=== PATIENT | female | born 1990 | race Caucasian/White ===

== ENCOUNTER 2016-09-20 02:36 | Emergency (ER) | payer OTHER ==
[2016-09-20] MEDS ORDERED: Ondansetron INJ* 2 MG/ML VIAL IV ONE (03:28)
[2016-09-20] MEDS ORDERED: NS 0.9% 1000 ML* 2,000 ML IV ONE (03:28)
[2016-09-20] MEDS ORDERED: Morphine INJ* 4 MG/ML 1 ML SYRINGE IV ONE (03:28)
[2016-09-20 04:06] LABS: Hematocrit 43 % (35-47); Hemoglobin 13.8 g/dl (12.0-16.0); Mean Corpuscular HGB Conc 32 g/dl (31-36); Mean Corpuscular Hemoglobin 27 pg (27-31); Mean Corpuscular Volume 85 fL (80-97); Mean Platelet Volume 10 um3 (7.4-10.4); Red Blood Count 5.03 10^6/ul (4.0-5.4); Red Cell Distribution Width 17 % (10.5-15)
[2016-09-20 04:17] LABS: ALT 41 U/L (7-52); AST 27 U/L (13-39); Albumin 4.4 g/dL (3.2-5.2); Alkaline Phosphatase 89 U/L (34-104); Anion Gap 8 mmol/L (2-11); BUN/Creatinine Ratio 17.9 (8-20); Blood Urea Nitrogen 12 mg/dL (6-24); C Reactive Protein 10.12 mg/L (< 5.00); CO2 Carbon Dioxide 24 mmol/L (22-32); Calcium 9.2 mg/dL (8.6-10.3); Chloride 104 mmol/L (101-111); EGFR African American 135.8 (>60); EGFR Non-African American 105.6 (>60); Globulin 3.4 g/dL (2-4); Glucose 131 mg/dL (70-100); Lipase 19 U/L (11.0-82.0); Potassium 3.8 mmol/L (3.5-5.0); Sodium 136 mmol/L (133-145); Total Protein 7.8 g/dL (6.4-8.9)
[2016-09-20 04:36] VITALS: BP 123/74
[2016-09-20] MEDS ORDERED: oxyCODONE/Acetamin 5/325 MG* TAB PO ONE (04:43)
--- NOTE | 2016-09-20 04:59 | ED ---
Elton Craft Alok, scribed for Chepe Peña MD on 09/20/16 at 0348 . Abdominal Pain/Female - HPI Summary HPI Summary: 26F presents with sudden onset of abd pain at 0130 this evening. Her pain is described as constant and sharp, located at the umbilical and is at the same site where a hernia repair was done years ago. Pt states that her hernia repair site has been bothering her on and off ever since though not with such severity as tonight. Pt states her pain worsens when standing. Pt notes N/V. Pt notes diaphoresis and subjective fever earlier. Pt denies pain radiation to the back. Pt denies chills, diarrhea, or cough. Pt smokes tobacco. Pt is allergic to azithromycin, penicillins, and sulfa antibiotics. Pt denies tenderness over her ovaries. - History of Current Complaint Chief Complaint: EDAbdPain Stated Complaint: ABD PAIN Time Seen by Provider: 09/20/16 03:06 Hx Obtained From: Patient Onset/Duration: Sudden Onset, Lasting Hours, Still Present Timing: Constant Severity Initially: Severe Severity Currently: Moderate Pain Intensity: 10 Pain Scale Used: 0-10 Numeric Location: Umbilical Radiates: No Character: Sharp Aggravating Factor(s): Other: - standing Alleviating Factor(s): Nothing Associated Signs and Symptoms: Positive: Diaphoresis, Fever - subjective, Nausea , Vomiting. Negative: Cough, Back Pain, Diarrhea Allergies/Adverse Reactions: Allergies Allergy/AdvReac Type Severity Reaction Status Date / Time Azithromycin Allergy Unknown Verified 12/16/15 22:58 Reaction Details Penicillins Allergy Unknown Verified 12/16/15 22:58 Reaction Details Sulfa Antibiotics Allergy Hives Verified 12/16/15 22:58 PMH/Surg Hx/FS Hx/Imm Hx GI History: Reports: Hx Gall Bladder Disease, Hx Hiatal Hernia Infectious Disease History: No Infectious Disease History: Denies: Traveled Outside the [place] in Last 30 Days - Family History Known Family History: Positive: Diabetes - Social History Occupation: Employed Full-time Alcohol Use: None Substance Use Type: Reports: None Hx Tobacco Use: Yes Smoking Status (MU): Current Every Day Smoker Type: Cigarettes Review of Systems Positive: Fever - subjective, Skin Diaphoresis. Negative: Chills Negative: Cough Positive: Abdominal Pain, Vomiting, Nausea. Negative: Diarrhea Negative: Other - back pain All Other Systems Reviewed And Are Negative: Yes Physical Exam - Summary Physical Exam Summary: The patient is well-nourished in no mild distress and in mild acute pain. The skin is warm and diaphoretic and skin color reflects adequate perfusion. HEENT: The head is normocephalic and atraumatic. The pupils are equal and reactive. The conjunctivae are clear and without drainage. Nares are patent and without drainage. Mouth reveals moist mucous membranes and the throat is without erythema and exudate. The external ears are intact. The ear canals are patent and without drainage. The tympanic membranes are intact. Neck is supple with full range of motion and non-tender. There are no carotid bruits. There is no neck vein distension. Respiratory: Chest is non-tender. Lungs are clear to auscultation and breath sounds are symmetrical and equal. Cardiovascular: Hear is regular rate and rhythm. There is no murmur or rub auscultated. There is no peripheral edema and pulses are symmetrical and equal. Abdomen: Marked abdominal tenderness. Incision and abdominal hernia tenderness to palpation. No Montenegro's sign. No McBurney's point tenderness. Incision does not appear incarcerated. There are normal bowel sounds heard in all four quadrants and there is no organomegaly palpated. Musculoskeletal: There is no back pain noted. No CVA tenderness. Extremities are non-tender with full range of motion. There is good capillary refill. There is no peripheral edema or calf tenderness elicited. Neurological: Patient is alert and oriented to person, place and time. The patient has symmetrical motor strength in all four extremities. Cranial nerves are grossly intact. Deep tendon reflexes are symmetrical and equal in all four extremities. Psychiatric: The patient has an appropriate affect and does not exhibit any anxiety or depression. Triage Information Reviewed: Yes Vital Signs On Initial Exam: Initial Vitals Temp Pulse Resp BP Pulse Ox 97 F 72 22 147/94 99 09/20/16 02:37 09/20/16 02:37 09/20/16 02:37 09/20/16 02:37 09/20/16 02:37 Vital Signs Reviewed: Yes Diagnostics - Vital Signs Vital Signs Temp Pulse Resp BP Pulse Ox 09/20/16 03:05 96.7 F 96 18 132/97 98 09/20/16 02:37 97 F 72 22 147/94 99 - Laboratory Lab Results: Lab Results 06/01/2709/20/16 09/20/16 Range/Units 03:49 03:49 03:49 WBC 12.0 H (3.5-10.8) 10^3/ul RBC 5.03 (4.0-5.4) 10^6/ul Hgb 13.8 (12.0-16.0) g/dl Hct 43 (35-47) % MCV 85 (80-97) fL MCH 27 (27-31) pg MCHC 32 (31-36) g/dl RDW 17 H (10.5-15) % Plt Count 264 (150-450) 10^3/ul MPV 10 (7.4-10.4) um3 Neut % (Auto) 78.5 (38-83) % Lymph % (Auto) 15.4 L (25-47) % Foard % (Auto) 4.6 (1-9) % Eos % (Auto) 0.9 (0-6) % Baso % (Auto) 0.6 (0-2) % Absolute Neuts (auto) 9.4 H (1.5-7.7) 10^3/ul Absolute Lymphs (auto) 1.9 (1.0-4.8) 10^3/ul Absolute Monos (auto) 0.6 (0-0.8) 10^3/ul Absolute Eos (auto) 0.1 (0-0.6) 10^3/ul Absolute Basos (auto) 0.1 (0-0.2) 10^3/ul Absolute Nucleated RBC 0.01 10^3/ul Nucleated RBC % 0 Sodium 136 (133-145) mmol/L Potassium 3.8 (3.5-5.0) mmol/L Chloride 104 (101-111) mmol/L Carbon Dioxide 24 (22-32) mmol/L Anion Gap 8 (2-11) mmol/L BUN 12 (6-24) mg/dL Creatinine 0.67 (0.51-0.95) mg/dL Est GFR ( Amer) 135.8 (>60) Est GFR (Non-Af Amer) 105.6 (>60) BUN/Creatinine Ratio 17.9 (8-20) Glucose 131 H (70-100) mg/dL Lactic Acid 1.5 (0.5-2.0) mmol/L Calcium 9.2 (8.6-10.3) mg/dL Total Bilirubin 0.40 (0.2-1.0) mg/dL AST 27 (13-39) U/L ALT 41 (7-52) U/L Alkaline Phosphatase 89 (34-104) U/L C-Reactive Protein 10.12 H (< 5.00) mg/L Total Protein 7.8 (6.4-8.9) g/dL Albumin 4.4 (3.2-5.2) g/dL Globulin 3.4 (2-4) g/dL Albumin/Globulin Ratio 1.3 (1-3) Lipase 19 (11.0-82.0) U/L Beta HCG, Quant < 0.60 mIU/mL Result Diagrams: 09/20/16 03:49 09/20/16 03:49 Lab Statement: Any lab studies that have been ordered have been reviewed, and results considered in the medical decision making process. - CT abd/pel CT CT Interpretation: Positive (See Comments) - IMPRESSION: MODERATE TO LARGE FAT- CONTAINING VENTRAL HERNIA. FATTY LIVER. RECOMMEND PELVIC ULTRASOUND TO EXCLUDE TORSION FROM A 5.3 CM RIGHT OVARIAN CYST CT Interpretation Completed By: Radiologist Re-Evaluation - Re-Evaluation First Eval Re-Evaluation Time: 04:43 Change: Improved Comment: Pt denies tenderness over her ovaries. will not do US. will discharge home with PCP FU and pain medication Abdominal Pain Fem Course/Dx - Course Course Of Treatment: Pt presents with umbilical tenderness at hernia repair site. ventral hernia not incarcerted. abd/pel CT done. Pt has large ovarian cyst not painful. Pt denies pain over ovary so will not do US. Pt will FU with her PCP - Diagnoses Differential Diagnosis: Positive: Bowel Obstruction, Diverticulitis, Other - incarcerated ventral hernia Provider Diagnoses: ventral hernia not incarcerated, Ovarian cyst Discharge - Discharge Plan Condition: Stable Disposition: HOME Patient Education Materials: Ventral Hernia (ED), Ovarian Cyst (ED) Forms: *Work Release Referrals: Fely Sandoval DO [Doctor of Osteopathy] - Additional Instructions: Please follow up with Dr. Sandoval The documentation as recorded by the Elton arteaga Alok accurately reflects the service I personally performed and the decisions made by me, Chepe Peña MD.
[2016-09-20 05:27] LABS: Urine Bacteria 1+ (Absent); Urine Bilirubin Negative (Negative); Urine Glucose Negative (Negative); Urine Nitrite Negative (Negative)
--- NOTE | 2016-09-20 08:00 | RAD ---
CLINICAL HISTORY: History of incarcerated ventral hernia COMPARISON: None TECHNIQUE: Multiple contiguous axial CT scans were obtained of the abdomen and pelvis, without intravenous contrast enhancement. Coronal and sagittal multiplanar reformations are submitted for review. Oral contrast was not administered. FINDINGS: The study is limited by the lack of intravenous contrast. This limits evaluation of the solid organs and vasculature. LUNG BASES: The lung bases are clear. LIVER: The liver is diffusely low in attenuation compared to the spleen. There are no focal hepatic parenchymal masses. The liver measures up to 19 cm in long axis. BILE DUCTS: There is no intrahepatic or extrahepatic biliary dilatation. GALLBLADDER: The gallbladder is not visualized. Surgical clips are noted in the gallbladder fossa. PANCREAS: The pancreas is normal, without mass or ductal dilatation. SPLEEN: Normal in size and appearance. UPPER GI TRACT: Evaluation of the gastrointestinal tract is limited by incomplete gastric distention. The upper GI tract is unremarkable. SMALL BOWEL AND MESENTERY: The small bowel is normal in contour, course, and caliber. There is no obstruction or dilatation. COLON: The colon is normal in contour, course, caliber. There is no pericolonic inflammatory change. ADRENALS: Normal bilaterally. KIDNEYS: The kidneys are normal in shape, size, contour, and axis. There is no hydronephrosis or nephrolithiasis. BLADDER: The bladder is smooth in contour. PELVIC ORGANS: There is a 5.3 cm right ovarian cyst measuring simple fluid in attenuation. The liver is otherwise normal. AORTA: The aorta is normal. IVC: Unremarkable LYMPH NODES: There is no lymphadenopathy by size criteria. ABDOMINAL WALL: There is a moderate-sized fat-containing ventral hernia. A hernia repair mesh is noted. BONES AND SOFT TISSUES: Unremarkable OTHER: None IMPRESSION: 1. HEPATOMEGALY WITH FATTY INFILTRATION OF THE LIVER. 2. FAT-CONTAINING VENTRAL HERNIA. 3. 5.3 CM RIGHT OVARIAN CYST
== END 2016-09-20 05:21 | disposition home or self-care (01) ==
LOC: ED 02:36
DX: K43.9 Ventral hernia without obstruction or gangrene (principal); N83.209 Unspecified ovarian cyst, unspecified side; R10.9 Unspecified abdominal pain; K76.0 Fatty (change of) liver, not elsewhere classified; R11.2 Nausea with vomiting, unspecified; F17.210 Nicotine dependence, cigarettes, uncomplicated; R50.9 Fever, unspecified
CPT/HCPCS: 36415; 74176; 80053; 81003; 81015; 83605; 83690; 84702; 85025; 86140; 87086; 99282; A9270-GY; J2270; J2405

== ENCOUNTER 2017-02-11 13:07 | Emergency (ER) | payer MEDICAID, OTHER ==
[2017-02-11 13:43] VITALS: BP 146/76
--- NOTE | 2017-02-11 15:10 | UC ---
Bridget Craft Rebecca, scribed for Geraldo August MD on 02/11/17 at 1458 . General HPI - HPI Summary HPI Summary: Pt is a 26 y/o F who presents to [facility] c/o illness for a month that worsened today. She c/o decreased hearing, pain and drainage from the L ear, sore throat , green nasal drainage, fever, cough, chest congestion and a frontal PEÑA that is currently moderate, ranked 7/10 and characterized as an ache/throbbing. Sx unchanged by Robitussin DM, aggravated and alleviated by nothing. Denies chills and post nasal drip. SHx current smoker. - History of Current Complaint Chief Complaint: UCRespiratory Stated Complaint: COUGH EAR PAIN Time Seen by Provider: 02/11/17 14:52 Hx Obtained From: Patient Hx Last Menstrual Period: 12/2016 Onset/Duration: Lasting Weeks - 4 weeks, Still Present, Worse Since - today Current Severity: Moderate - 7/10 Pain Intensity: 7 Pain Location at: Frontal PEÑA Character: Ache/throbbing Aggravating: Nothing Alleviating: Nothing Associated Signs & Symptoms: Positive: Cough, Fever, Headache - Allergy/Home Medications Allergies/Adverse Reactions: Allergies Allergy/AdvReac Type Severity Reaction Status Date / Time Azithromycin Allergy Unknown Verified 02/11/17 13:43 Reaction Details Penicillins Allergy Unknown Verified 02/11/17 13:43 Reaction Details Sulfa Antibiotics Allergy Hives Verified 02/11/17 13:43 Home Medications: Home Medications Levothyroxine TAB* [Synthroid TAB*] 1 tab PO DAILY 02/11/17 [History Confirmed 02/11/17] PMH/Surg Hx/FS Hx/Imm Hx - Additional Past Medical History Additional PMH: No PMHx asthma Endocrine History: Thyroid Disease - Surgical History Surgical History: Yes Surgery Procedure, Year, and Place: GALLBLADDER, HERNIA REPAIR ANTERIOR ABD, LEFT SIDED NECK LYMPH NODE - Family History Known Family History: Positive: Diabetes - Social History Alcohol Use: None Substance Use Type: None Smoking Status (MU): Current Every Day Smoker Type: Cigarettes Review of Systems Constitutional: Fever Skin: Negative Eyes: Negative ENT: Sore Throat, Ear Ache - L ear pain, decreased hearing and drainage, Nasal Discharge Respiratory: Cough, Other - Chest congestion Cardiovascular: Negative Gastrointestinal: Negative Genitourinary: Negative Motor: Negative Neurovascular: Negative Musculoskeletal: Negative Neurological: Headache Psychological: Negative All Other Systems Reviewed And Are Negative: Yes - Comments Additional Review of Systems Comments: NEGATIVE: Chills and post-nasal drip Physical Exam Triage Information Reviewed: Yes Vital Signs: Initial Vital Signs Temp 98.3 F 02/11/17 13:38 Pulse 86 02/11/17 13:38 Resp 16 02/11/17 13:38 BP 146/76 02/11/17 13:38 Pulse Ox 100 02/11/17 13:38 Vital Signs Reviewed: Yes - Additional Comments General: mildly ill-appearing, no pain distress Skin: warm, color reflects adequate perfusion, dry Head: normal Eyes: EOMI, JAYA ENT: green rhionrrhea, left cerous otitis media, posterior pharynx erythematous , tonsils 1+ bilaterally Neck: supple, anterior cervical lymphadenopathy Respiratory: CTA, breath sounds present Cardiovascular: RRR Abdomen: soft, nontender Bowel: present Musculoskeletal: normal, strength/ROM intact Neurological: normal, sensory/motor intact, A&O x3 Psychological: affect/mood appropriate Course/Dx - Course Course Of Treatment: Allergies noted. Medications reviewed. Elevated BP noted and advised to follow up with PCP. - Differential Dx - Multi-Symptom Provider Diagnoses: SINSUITIS/COUGH Discharge - Discharge Plan Condition: Stable Disposition: HOME Prescriptions: Amoxicillin/Clavulanate TAB* [Augmentin TAB 875*] 875 mg PO BID #20 tab Benzonatate CAP* [Tessalon 100 MG CAP*] 100 mg PO TID PRN #15 cap PRN Reason: Cough Patient Education Materials: Sinusitis (ED) Forms: *Work Release Referrals: Reji Padgett MD [Primary Care Provider] - Additional Instructions: FOLLOW UP WITH YOUR DOCTOR. GET RECHECKED FOR ANY WORSENING OF YOUR CONDITION OR QUESTIONS OR CONCERNS. The documentation as recorded by the Bridget arteaga Rebecca accurately reflects the service I personally performed and the decisions made by me, Geraldo August MD.
== END 2017-02-11 15:05 | disposition home or self-care (01) ==
LOC: UCEAST 13:07
DX: J32.9 Chronic sinusitis, unspecified (principal); Z88.0 Allergy status to penicillin; Z88.2 Allergy status to sulfonamides; F17.210 Nicotine dependence, cigarettes, uncomplicated; E07.9 Disorder of thyroid, unspecified; R05 Cough
CPT/HCPCS: 99212; G0463

== ENCOUNTER 2017-05-04 09:07 | Emergency (ER) | payer MEDICAID, OTHER ==
[2017-05-04 10:53] LABS: ABS Basophils 0 10^3/ul (0-0.2); ABS Eosinophils 0.1 10^3/ul (0-0.6); ABS Lymphocytes 2.7 10^3/ul (1.0-4.8); ABS Monocytes 0.5 10^3/ul (0-0.8); ABS Neutrophils 3.2 10^3/ul (1.5-7.7); ABS Nucleated RBC 0 10^3/ul; Eosinophil % 1.7 % (0-6); Hematocrit 41 % (35-47); Hemoglobin 13.9 g/dl (12.0-16.0); Lymphocyte % 40.8 % (25-47); Mean Corpuscular HGB Conc 34 g/dl (31-36); Mean Corpuscular Hemoglobin 29 pg (27-31); Mean Corpuscular Volume 86 fL (80-97); Mean Platelet Volume 11 um3 (7.4-10.4); Nucleated Red Blood Cells % 0.2; Platelet Count 212 10^3/ul (150-450); Red Blood Count 4.82 10^6/ul (4.0-5.4); Red Cell Distribution Width 16 % (10.5-15); White Blood Count 6.6 10^3/ul (3.5-10.8)
[2017-05-04 11:13] LABS: EGFR Non-African American 102.1 (>60)
[2017-05-04] MEDS ORDERED: NS 0.9% 1000 ML* 1,000 ML IV ONE (12:53)
--- NOTE | 2017-05-04 12:59 | ED ---
Abdominal Pain/Female - HPI Summary HPI Summary: Pt here w/ N/V/D s/p elpidio en y + hernia repair on 03/18/2017 w/ Dr. Gold in [facility]. She's been tolerating PO liquids well and advancing as directed however did not handle pudding well (triggered nausea). 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 Now when she tries to eat same soup, she vomits. Reports vomiting with all other solids as wel but is still tolerating liquids without difficulty including water, juice, broth, milk , yogurt EXCEPT OJ which makes her nauseous. She has not tried her anti-emetics with her liquids as she's not needed them however has tried them with solids and reports neither work (zofran and phenergan). SHe also takes protonix, multivitamin. She had 1 episode of diarrhea last night - otherwise moving bowels well. Reports ab "soreness" since back to work. Smokes 6 cigarettes a day. - History of Current Complaint Hx Obtained From: Patient Hx Last Menstrual Period: 01/2017 Pain Intensity: 5 <Lilliam oRd - Last Filed: 05/04/17 13:55> <Carmen Warren - Last Filed: 05/12/17 08:51> - History of Current Complaint Chief Complaint: EDAbdPain Stated Complaint: N/V X 4 DAYS Time Seen by Provider: 05/04/17 10:14 Allergies/Adverse Reactions: Allergies Allergy/AdvReac Type Severity Reaction Status Date / Time Azithromycin Allergy Unknown Verified 02/16/17 22:14 Reaction Details Penicillins Allergy Unknown Verified 02/16/17 22:14 Reaction Details Sulfa Antibiotics Allergy Hives Verified 02/16/17 22:14 PMH/Surg Hx/FS Hx/Imm Hx Endocrine/Hematology History: Reports: Hx Thyroid Disease Cardiovascular History: Denies: Hx Hypertension Respiratory History: Denies: Hx Asthma GI History: Reports: Hx Gall Bladder Disease, Hx Hiatal Hernia - Surgical History Surgery Procedure, Year, and Place: GALLBLADDER, HERNIA REPAIR ANTERIOR ABD, LEFT SIDED NECK LYMPH NODE Infectious Disease History: No Infectious Disease History: Denies: History Other Infectious Disease, Traveled Outside the [place] in Last 30 Days - Family History Known Family History: Positive: Diabetes - Social History Alcohol Use: None Substance Use Type: Reports: None Hx Tobacco Use: Yes Smoking Status (MU): Current Every Day Smoker Type: Cigarettes <Lilliam Rod - Last Filed: 05/04/17 13:55> Review of Systems All Other Systems Reviewed And Are Negative: Yes <Carmen Warren - Last Filed: 05/12/17 08:51> Physical Exam Vital Signs On Initial Exam: Initial Vitals Temp Pulse Resp BP Pulse Ox 98 F 60 18 113/61 100 05/04/17 09:25 05/04/17 09:25 05/04/17 09:25 05/04/17 09:25 05/04/17 09:25 <Lilliam Rod - Last Filed: 05/04/17 13:55> Vital Signs On Initial Exam: Initial Vitals Temp Pulse Resp BP Pulse Ox 98 F 60 18 113/61 100 05/04/17 09:25 05/04/17 09:25 05/04/17 09:25 05/04/17 09:25 05/04/17 09:25 <Carmen Warren - Last Filed: 05/12/17 08:51> Diagnostics - Vital Signs Vital Signs Temp Pulse Resp BP Pulse Ox 05/04/17 12:00 47 97/49 97 05/04/17 11:34 49 98 05/04/17 11:33 93/47 05/04/17 09:25 98 F 60 18 113/61 100 - Laboratory Lab Results: Lab Results 05/04/17 05/04/17 05/04/17 Range/Units 10:25 10:25 10:25 WBC 6.6 (3.5-10.8) 10^3/ul RBC 4.82 (4.0-5.4) 10^6/ul Hgb 13.9 (12.0-16.0) g/dl Hct 41 (35-47) % MCV 86 (80-97) fL MCH 29 (27-31) pg MCHC 34 (31-36) g/dl RDW 16 H (10.5-15) % Plt Count 212 (150-450) 10^3/ul MPV 11 H (7.4-10.4) um3 Neut % (Auto) 49.5 (38-83) % Lymph % (Auto) 40.8 (25-47) % Hunt % (Auto) 7.7 (1-9) % Eos % (Auto) 1.7 (0-6) % Baso % (Auto) 0.3 (0-2) % Absolute Neuts (auto) 3.2 (1.5-7.7) 10^3/ul Absolute Lymphs (auto) 2.7 (1.0-4.8) 10^3/ul Absolute Monos (auto) 0.5 (0-0.8) 10^3/ul Absolute Eos (auto) 0.1 (0-0.6) 10^3/ul Absolute Basos (auto) 0 (0-0.2) 10^3/ul Absolute Nucleated RBC 0 10^3/ul Nucleated RBC % 0.2 Sodium 141 (133-145) mmol/L Potassium 3.4 L (3.5-5.0) mmol/L Chloride 107 (101-111) mmol/L Carbon Dioxide 26 (22-32) mmol/L Anion Gap 8 (2-11) mmol/L BUN 10 (6-24) mg/dL Creatinine 0.69 (0.51-0.95) mg/dL Est GFR ( Amer) 131.3 (>60) Est GFR (Non-Af Amer) 102.1 (>60) BUN/Creatinine Ratio 14.5 (8-20) Glucose 94 (70-100) mg/dL Lactic Acid 1.4 (0.5-2.0) mmol/L Calcium 9.3 (8.6-10.3) mg/dL Magnesium 1.8 L (1.9-2.7) mg/dL Total Bilirubin 0.60 (0.2-1.0) mg/dL AST 39 (13-39) U/L ALT 46 (7-52) U/L Alkaline Phosphatase 78 (34-104) U/L C-Reactive Protein 5.05 H (< 5.00) mg/L Total Protein 6.9 (6.4-8.9) g/dL Albumin 4.0 (3.2-5.2) g/dL Globulin 2.9 (2-4) g/dL Albumin/Globulin Ratio 1.4 (1-3) Lipase 18 (11.0-82.0) U/L Beta HCG, Quant 0.71 mIU/mL Result Diagrams: 05/04/17 10:25 05/04/17 10:25 Lab Statement: Any lab studies that have been ordered have been reviewed, and results considered in the medical decision making process. <Lilliam Rod - Last Filed: 05/04/17 13:55> - Vital Signs Vital Signs Temp Pulse Resp BP Pulse Ox 05/04/17 14:54 98.3 F 56 20 112/68 100 05/04/17 14:00 61 98 05/04/17 13:00 66 97 05/04/17 12:00 47 97/49 97 05/04/17 11:34 49 98 05/04/17 11:33 93/47 05/04/17 09:25 98 F 60 18 113/61 100 - Laboratory Lab Results: Lab Results 05/04/17 05/04/17 05/04/17 Range/Units 10:25 10:25 10:25 WBC 6.6 (3.5-10.8) 10^3/ul RBC 4.82 (4.0-5.4) 10^6/ul Hgb 13.9 (12.0-16.0) g/dl Hct 41 (35-47) % MCV 86 (80-97) fL MCH 29 (27-31) pg MCHC 34 (31-36) g/dl RDW 16 H (10.5-15) % Plt Count 212 (150-450) 10^3/ul MPV 11 H (7.4-10.4) um3 Neut % (Auto) 49.5 (38-83) % Lymph % (Auto) 40.8 (25-47) % Hunt % (Auto) 7.7 (1-9) % Eos % (Auto) 1.7 (0-6) % Baso % (Auto) 0.3 (0-2) % Absolute Neuts (auto) 3.2 (1.5-7.7) 10^3/ul Absolute Lymphs (auto) 2.7 (1.0-4.8) 10^3/ul Absolute Monos (auto) 0.5 (0-0.8) 10^3/ul Absolute Eos (auto) 0.1 (0-0.6) 10^3/ul Absolute Basos (auto) 0 (0-0.2) 10^3/ul Absolute Nucleated RBC 0 10^3/ul Nucleated RBC % 0.2 Sodium 141 (133-145) mmol/L Potassium 3.4 L (3.5-5.0) mmol/L Chloride 107 (101-111) mmol/L Carbon Dioxide 26 (22-32) mmol/L Anion Gap 8 (2-11) mmol/L BUN 10 (6-24) mg/dL Creatinine 0.69 (0.51-0.95) mg/dL Est GFR ( Amer) 131.3 (>60) Est GFR (Non-Af Amer) 102.1 (>60) BUN/Creatinine Ratio 14.5 (8-20) Glucose 94 (70-100) mg/dL Lactic Acid 1.4 (0.5-2.0) mmol/L Calcium 9.3 (8.6-10.3) mg/dL Magnesium 1.8 L (1.9-2.7) mg/dL Total Bilirubin 0.60 (0.2-1.0) mg/dL AST 39 (13-39) U/L ALT 46 (7-52) U/L Alkaline Phosphatase 78 (34-104) U/L C-Reactive Protein 5.05 H (< 5.00) mg/L Total Protein 6.9 (6.4-8.9) g/dL Albumin 4.0 (3.2-5.2) g/dL Globulin 2.9 (2-4) g/dL Albumin/Globulin Ratio 1.4 (1-3) Lipase 18 (11.0-82.0) U/L Beta HCG, Quant 0.71 mIU/mL Urine Color Urine Appearance Urine pH (5-9) Ur Specific Perry (1.010-1.030) Urine Protein (Negative) Urine Ketones (Negative) Urine Blood (Negative) Urine Nitrate (Negative) Urine Bilirubin (Negative) Urine Urobilinogen (Negative) Ur Leukocyte Esterase (Negative) Urine WBC (Auto) (Absent) Urine RBC (Auto) (Absent) Ur Squamous Epith Cells (Absent) Urine Bacteria (Absent) Urine Glucose (Negative) Urine Ascorbic Acid (Negative) 05/04/17 Range/Units 12:45 WBC (3.5-10.8) 10^3/ul RBC (4.0-5.4) 10^6/ul Hgb (12.0-16.0) g/dl Hct (35-47) % MCV (80-97) fL MCH (27-31) pg MCHC (31-36) g/dl RDW (10.5-15) % Plt Count (150-450) 10^3/ul MPV (7.4-10.4) um3 Neut % (Auto) (38-83) % Lymph % (Auto) (25-47) % Hunt % (Auto) (1-9) % Eos % (Auto) (0-6) % Baso % (Auto) (0-2) % Absolute Neuts (auto) (1.5-7.7) 10^3/ul Absolute Lymphs (auto) (1.0-4.8) 10^3/ul Absolute Monos (auto) (0-0.8) 10^3/ul Absolute Eos (auto) (0-0.6) 10^3/ul Absolute Basos (auto) (0-0.2) 10^3/ul Absolute Nucleated RBC 10^3/ul Nucleated RBC % Sodium (133-145) mmol/L Potassium (3.5-5.0) mmol/L Chloride (101-111) mmol/L Carbon Dioxide (22-32) mmol/L Anion Gap (2-11) mmol/L BUN (6-24) mg/dL Creatinine (0.51-0.95) mg/dL Est GFR ( Amer) (>60) Est GFR (Non-Af Amer) (>60) BUN/Creatinine Ratio (8-20) Glucose (70-100) mg/dL Lactic Acid (0.5-2.0) mmol/L Calcium (8.6-10.3) mg/dL Magnesium (1.9-2.7) mg/dL Total Bilirubin (0.2-1.0) mg/dL AST (13-39) U/L ALT (7-52) U/L Alkaline Phosphatase (34-104) U/L C-Reactive Protein (< 5.00) mg/L Total Protein (6.4-8.9) g/dL Albumin (3.2-5.2) g/dL Globulin (2-4) g/dL Albumin/Globulin Ratio (1-3) Lipase (11.0-82.0) U/L Beta HCG, Quant mIU/mL Urine Color Azul Urine Appearance Cloudy Urine pH 5.0 (5-9) Ur Specific Perry 1.032 H (1.010-1.030) Urine Protein 1+(30 mg/dl) H (Negative) Urine Ketones Trace H (Negative) Urine Blood Negative (Negative) Urine Nitrate Negative (Negative) Urine Bilirubin 1+ H (Negative) Urine Urobilinogen Positive H (Negative) Ur Leukocyte Esterase Trace H (Negative) Urine WBC (Auto) 1+(6-10/hpf) H (Absent) Urine RBC (Auto) Absent (Absent) Ur Squamous Epith Cells Present H (Absent) Urine Bacteria Absent (Absent) Urine Glucose Negative (Negative) Urine Ascorbic Acid * H (Negative) Result Diagrams: 05/04/17 10:25 05/04/17 10:25 Lab Statement: Any lab studies that have been ordered have been reviewed, and results considered in the medical decision making process. <Carmen Warren - Last Filed: 05/12/17 08:51> Abdominal Pain Fem Course/Dx - Course Course Of Treatment: Pt tolerating PO liquids well - ordered zofran in an effort to allow her to keep hydrating by mouth. She admits later in the visit that she is trying to eat too fast at work because her breaks are not adequate for regular hydration and nourishement as she needs. Spoke w/ Dr. Gold - advises reverting back to liquids and soft diet and f/u w/ him this week - she will call to schedule. He is also concerend about her smoking - reports she may develop an ulcer if she continues and she signed a contract NOT to smoke. She states she's quit in the past on chantix - not currently taking but open to trying again through PCP - will contact today. Also admits increased stress with work has her back to smoking. Will take her out of work for a few days to readust to diet, stress and come up with a game plan - needs to take scheduled breaks at work to keep nourishment adequate and avoid vomiting as this can be dangerous overtime. <Lilliam Rod - Last Filed: 05/04/17 13:55> <Carmen Warren - Last Filed: 05/12/17 08:51> - Diagnoses Provider Diagnoses: Vomiting (bilious) following gastrointestinal surgery Discharge <Lilliam Rod - Last Filed: 05/04/17 13:55> <Carmen Warren - Last Filed: 05/12/17 08:51> - Discharge Plan Condition: Stable Disposition: HOME Patient Education Materials: How to Stop Smoking (ED), Elpidio-en-Y Gastric Bypass (GEN), Nutrition after Bariatric Surgery (DC) Forms: *Work Release Referrals: Fely Sandoval DO [Primary Care Provider] - Freddy Gold MD [Family Provider] - Additional Instructions: You appear to be having abdominal discomfort and vomiting from advancing too quickly with diet - eating too fast due to constraints at work, etc. Revert back to liquids and soft foods you know you can tolerate and take anti-nausea medications as needed to tolerate these liquids/soft foods. Follow-up with Dr. Gold later this week or early next to follow-up on your progress. It is also encouraged that you join a support group for other patients with gastric bypass status as they are able to offer support, helpful tips, encouragement, etc that other people may not be able to provide. If you do not know about resources, check in with Dr. Gold for options. It has also been advised that you stop smoking as this can cause an ulcer in your stomach. This may be done through mindful stress reduction techniques and chantix as you have used this well inthe past. Call you PCP today to schedule an appointment this week to restart. You may also benefit from counseling to aid in this process. PCP can refer you as needed. *If in the meantime, you develop abdominal pain, fever, chills, chest pain, shortness of breath, intractable vomiting/diarrhea despite recommendations, return to ED.
[2017-05-04 13:11] LABS: Urine Appearance Cloudy; Urine Blood Negative (Negative); Urine Color Amber; Urine Ketones Trace (Negative); Urine Protein 1+(30 mg/dL) (Negative); Urine Specific Gravity 1.032 (1.010-1.030); Urine Urobilinogen Positive (Negative)
[2017-05-04] MEDS ORDERED: Ondansetron INJ* 2 MG/ML VIAL IV ONE (13:54)
[2017-05-04 14:54] VITALS: BP 112/68
== END 2017-05-04 14:54 | disposition home or self-care (01) ==
LOC: ED 09:07
DX: K91.0 Vomiting following gastrointestinal surgery (principal); F17.210 Nicotine dependence, cigarettes, uncomplicated; Z88.3 Allergy status to other anti-infective agents; Z88.0 Allergy status to penicillin; Z88.2 Allergy status to sulfonamides
CPT/HCPCS: 36415; 80053; 81003; 81015; 83605; 83690; 83735; 84702; 85025; 86140; 87086; 96361; 96374; 99282; J2405

== ENCOUNTER 2017-07-20 18:01 | Emergency (ER) | payer MEDICAID ==
[2017-07-20] MEDS ORDERED: Pantoprazole IV* 40 MG IV ONE (19:40)
[2017-07-20] MEDS ORDERED: NS 0.9% 1000 ML* 1,000 ML IV ONE (19:40)
[2017-07-20] MEDS ORDERED: Metoclopramide IV* 5 MG/ML 2 ML VIAL IV SLOW PU ONE (19:40)
[2017-07-20 20:29] LABS: INR 0.94 (0.77-1.02)
[2017-07-20 20:39] LABS: EGFR Non-African American 121.4 (>60)
[2017-07-20] MEDS ORDERED: Iohexol 300* (CONTRAST) 10 ML SDV IV ONE (20:42)
[2017-07-20 20:49] LABS: ABS Basophils 0 10^3/ul (0-0.2); ABS Eosinophils 0.2 10^3/ul (0-0.6); ABS Lymphocytes 3.6 10^3/ul (1.0-4.8); ABS Monocytes 0.4 10^3/ul (0-0.8); ABS Nucleated RBC 0 10^3/ul; Eosinophil % 1.9 % (0-6); Hematocrit 37 % (35-47); Hemoglobin 12.6 g/dl (12.0-16.0); Lymphocyte % 43.9 % (25-47); Mean Corpuscular HGB Conc 34 g/dl (31-36); Mean Corpuscular Hemoglobin 31 pg (27-31); Mean Corpuscular Volume 91 fL (80-97); Mean Platelet Volume 9.6 um3 (7.4-10.4); Nucleated Red Blood Cells % 0.1; Platelet Count 224 10^3/ul (150-450); Red Blood Count 4.06 10^6/ul (4.0-5.4); Red Cell Distribution Width 24 % (10.5-15); White Blood Count 8.1 10^3/ul (3.5-10.8)
--- NOTE | 2017-07-20 21:43 | RAD ---
INDICATION: Upper abdominal pain. Vomiting. Post gastric bypass, cholecystectomy, hernia repair. COMPARISON: September 20, 2016 TECHNIQUE: Multidetector CT images were obtained from the lung bases to the ischial tuberosities with 132 mL Omnipaque 300 IV and oral contrast. Multiplanar reformation. REPORT: Mild bibasilar subsegmental atelectasis. Top normal size of the liver with diffuse decreased density consistent with fatty infiltration. No focal hepatic lesions or biliary dilatation. Post cholecystectomy. Unremarkable pancreas and spleen. Postsurgical change of gastric bypass without suspicious finding. Supraumbilical midline to LEFT para midline mesenteric fat-containing 1.6 cm AP by 4.6 cm transverse by 3.3 cm cephalocaudal hernia exiting through a 1.0 x 1.7 cm fascia defect. Significant associated inflammatory change within the hernia and surrounding the hernia within the subcutaneous tissue plane. The hernia is significantly decreased in size compared with the September 20, 2016 exam. Postsurgical change of previous ventral hernia repair cephalad adjacent to the current hernia. Negative for additional hernias. Normal adrenal glands. Unremarkable kidneys with symmetric nephrograms and pyelograms. Unremarkable nondilated ureters and largely decompressed urinary bladder as well as the anteverted uterus and adnexal regions. Negative for lymphadenopathy. Normal diameter abdominal aorta and iliac arteries. Physiologic distention of the IVC. Bilateral subchondral sclerosis at the iliac and sacral margins of the sacroiliac joints. No definitive osseous erosions, osteophytosis, joint effusions, or joint space widening or narrowing evident. Negative for suspicious focal osseous lesions. IMPRESSION: 1. Inflammatory change at a mesenteric fat-containing ventral hernia located inferior to a previous ventral hernia repair. Given the inflammatory change the herniated fat may be incarcerated and ischemic. Correlate with clinical assessment. 2. Negative for ascites or free air. 3. Fatty infiltration of the liver. 4. Sclerotic changes at the bilateral sacroiliac joints which may represent sequela of chronic sacroiliitis or atypical osteitis condensans ilii with involvement of both the sacral and iliac margins of the sacroiliac joints.
[2017-07-20 22:13] LABS: Urine Appearance Cloudy; Urine Blood Negative (Negative); Urine Color Yellow; Urine Ketones Trace (Negative); Urine Protein Negative (Negative); Urine Specific Gravity 1.042 (1.010-1.030); Urine Urobilinogen Positive (Negative)
--- NOTE | 2017-07-20 22:21 | ED ---
Suman Craft Stephanie, scribed for Quita Valverde MD on 07/20/17 at 1918 . Abdominal Pain/Female - HPI Summary HPI Summary: The pt is a 27 y/o F presenting to the ED with c/o epigastric pain that began at 12:00 today. Symptoms include slight hematemesis, lightheadedness and dizziness. The pt denies diarrhea. Her abd pain is described as burning. The pt has hx of gastric bypass and hernia. She states she vomited 4 times today and the most recent vomiting episode occurred at 17:00. The pt reports BM this morning. - History of Current Complaint Chief Complaint: EDAbdPain Stated Complaint: VOMITING BLOOD Time Seen by Provider: 07/20/17 19:09 Hx Obtained From: Patient Hx Last Menstrual Period: 01/2017 ?: No Onset/Duration: Sudden Onset, Lasting Hours, Still Present Timing: Intermittent Episode Lasting Severity Currently: Moderate Pain Intensity: 6 Pain Scale Used: 0-10 Numeric Location: Epigastric Radiates: No Character: Burning Aggravating Factor(s): Nothing Alleviating Factor(s): Nothing Associated Signs and Symptoms: Positive: Dizzy, Nausea, Vomiting - slight hematemesis, Other: - lightheadedness. Negative: Diarrhea Allergies/Adverse Reactions: Allergies Allergy/AdvReac Type Severity Reaction Status Date / Time azithromycin Allergy Anaphylatic Verified 07/20/17 18:18 Shock Penicillins Allergy Unknown Verified 07/20/17 18:18 Reaction Details Sulfa (Sulfonamide Allergy Hives Verified 07/20/17 18:18 Antibiotics) PMH/Surg Hx/FS Hx/Imm Hx Endocrine/Hematology History: Reports: Hx Thyroid Disease Cardiovascular History: Denies: Hx Hypertension Respiratory History: Denies: Hx Asthma GI History: Reports: Hx Gall Bladder Disease, Hx Hiatal Hernia EENT History: Denies: Hx Deafness - Surgical History Surgery Procedure, Year, and Place: GALLBLADDER, HERNIA REPAIR ANTERIOR ABD, LEFT SIDED NECK LYMPH NODE Infectious Disease History: No Infectious Disease History: Denies: History Other Infectious Disease, Traveled Outside the [place] in Last 30 Days - Family History Known Family History: Positive: Diabetes - Social History Occupation: Unemployed Lives: With Family Alcohol Use: None Hx Substance Use: No Substance Use Type: Reports: None Hx Tobacco Use: Yes Smoking Status (MU): Current Every Day Smoker Type: Cigarettes Have You Smoked in the Last Year: Yes Review of Systems Negative: Fever Positive: Abdominal Pain, Vomiting - hematemesis, Nausea. Negative: Diarrhea Neurological: Other - lightheadedness, dizziness Negative: Slurred Speech All Other Systems Reviewed And Are Negative: Yes Physical Exam - Summary Physical Exam Summary: VITAL SIGNS: Reviewed. GENERAL: Patient is a well-developed and nourished FEMALE who is lying comfortable in the stretcher. Patient is not in any acute respiratory distress. HEAD AND FACE: No signs of trauma. No ecchymosis, hematomas or skull depressions. No sinus tenderness. EYES: PERRLA, EOMI x 2, No injected conjunctiva, no nystagmus. EARS: Hearing grossly intact. Ear canals and tympanic membranes are within normal limits. MOUTH: Oropharynx within normal limits. NECK: Supple, trachea is midline, no adenopathy, no JVD, no carotid bruit, no c- spine tenderness, neck with full ROM. CHEST: Symmetric, no tenderness at palpation LUNGS: Clear to auscultation bilaterally. No wheezing or crackles. CVS: Regular rate and rhythm, S1 and S2 present, no murmurs or gallops appreciated. ABDOMEN: Soft, epigastric tenderness. No signs of distention. No rebound no guarding, and no masses palpated. Bowel sounds are normal. EXTREMITIES: FROM in all major joints, no edema, no cyanosis or clubbing. NEURO: Alert and oriented x 3. No acute neurological deficits. Speech is normal and follows commands. SKIN: Dry and warm Triage Information Reviewed: Yes Vital Signs On Initial Exam: Initial Vitals Temp Pulse Resp BP Pulse Ox 97.4 F 51 16 127/63 98 07/20/17 18:19 07/20/17 18:19 07/20/17 18:19 07/20/17 18:19 07/20/17 18:19 Vital Signs Reviewed: Yes Diagnostics - Vital Signs Vital Signs Temp Pulse Resp BP Pulse Ox 07/20/17 18:19 97.4 F 51 16 127/63 98 - Laboratory Result Diagrams: 07/20/17 20:13 07/20/17 20:13 Lab Statement: Any lab studies that have been ordered have been reviewed, and results considered in the medical decision making process. - CT Abdomen CT Interpretation: Positive (See Comments) CT Interpretation Completed By: Radiologist - 1. Inflammatory change at a mesenteric fat-containing ventral hernia located inferior to a previous ventral hernia repair. Given the inflammatory change the herniated fat may be incarcerated and ischemic. Correlate with clinical assessment. 2. Negative for ascites or free air. 3. Fatty infiltration of the liver. 4. Sclerotic changes at the bilateral sacroiliac joints which may represent sequela of chronic sacroiliitis or atypical osteitis condensans ilii with involvement of both the sacral and iliac margins of the sacroiliac joints. ED physician has reviewed this report. Re-Evaluation - Re-Evaluation First Eval Re-Evaluation Time: 22:17 Change: Improved - The pt states she feels better. Abdominal Pain Fem Course/Dx - Course Course Of Treatment: At 22:16, pt states she feels better. She arrived at ED with c/o epigastric pain. ED physician reviewed the CT report with the pt. Symptoms do not correlate with CT report as well as blood work. Pt symptoms likely not as result of hernia. Her symptoms are likely the result of gastritis. She will be d/c home with Reglan and protonics. She is advised to follow up with her PCP. - Diagnoses Provider Diagnoses: Gastritis Discharge - Sign-Out/Discharge Documenting (check all that apply): Discharge - Discharge Plan Condition: Stable Disposition: HOME Prescriptions: Metoclopramide TAB* [Reglan TAB*] 10 mg PO Q6H PRN #20 tab PRN Reason: Nausea/Vomiting Pantoprazole TAB (NF) [Protonix TAB (NF)] 40 mg PO DAILY #30 tab Patient Education Materials: Gastritis (ED) Referrals: Fely Sandoval DO [Primary Care Provider] - 2 Days Additional Instructions: RETURN TO EMERGENCY DEPARTMENT FOR ANY NEW OR WORSENING SYMPTOMS. The documentation as recorded by the Suman arteaga Stephanie accurately reflects the service I personally performed and the decisions made by , Quita Valverde MD.
[2017-07-20 22:54] VITALS: BP 115/66
--- NOTE | 2017-07-24 07:07 | PN ---
Progress Note - Progress Note Date of Service: 07/24/17 Note: Patient urine culture grew Escherichia coli greater than 100,000 and normal fora greater than 100,000. sent prescription for Cipro 500 mg twice a day for 5 days. Attempts to call patient unable to leave . we'll send letter.
== END 2017-07-20 22:57 | disposition home or self-care (01) ==
LOC: ED 18:01
DX: K29.70 Gastritis, unspecified, without bleeding (principal); R11.2 Nausea with vomiting, unspecified; R42 Dizziness and giddiness; K76.0 Fatty (change of) liver, not elsewhere classified; Z88.0 Allergy status to penicillin; F17.210 Nicotine dependence, cigarettes, uncomplicated
CPT/HCPCS: 36415; 74177; 80053; 81003; 81015; 82150; 83690; 83735; 84702; 85025; 85060; 85610; 85730; 86140; 87077; 87086; 87186; 99284; J2765; Q9967

== ENCOUNTER 2017-12-17 04:02 | Emergency (ER) | payer SELFPAY ==
--- NOTE | 2017-12-17 04:45 | ED ---
Complex/Multi-Sys Presentation - HPI Summary HPI Summary: This is Willie arteaga, documenting for attending Quita Valverde MD. Pt is a 27 y/o F presents to ED s/p receiving x2 positive tests. Patient is asymptomatic at this time. 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 She states having a blood type that makes it difficult to carry a child. She says that she has been 3 times previously; all ending in miscarriage. LNMP: November 19. - History Of Current Complaint Chief Complaint: EDOBProblems Time Seen by Provider: 12/17/17 04:09 Hx Obtained From: Patient Onset/Duration: Sudden Onset, Lasting Hours Associated Signs And Symptoms: Negative: Decreased Responsiveness, Confusion, Agitation, Dizziness, Weakness, Syncope, Headache, SOB, Cough, Wheezing, Hemoptysis, Chest Pain, Palpitations, Edema, Nausea, Vomiting, Diarrhea, Abdominal Pain, Back Pain, Dysuria, Hematemesis, Melena, Decreased Oral Intake, Fever, Diaphoresis, Immunocompromised, Anticoagulation Therapy, Recent Medication Changes, Indwelling Pelt Inspector, Prior MRSA, Prior VRE, Recent Trauma, Remote Trauma - Allergies/Home Medications Allergies/Adverse Reactions: Allergies Allergy/AdvReac Type Severity Reaction Status Date / Time azithromycin Allergy Anaphylatic Verified 07/20/17 18:18 Shock Penicillins Allergy Unknown Verified 07/20/17 18:18 Reaction Details Sulfa (Sulfonamide Allergy Hives Verified 07/20/17 18:18 Antibiotics) PMH/Surg Hx/FS Hx/Imm Hx Endocrine/Hematology History: Reports: Hx Thyroid Disease Denies: Hx Diabetes Cardiovascular History: Denies: Hx Hypertension Respiratory History: Denies: Hx Asthma GI History: Reports: Hx Gall Bladder Disease, Hx Hiatal Hernia History: Denies: Hx Renal Disease Sensory History: Denies: Hx Deafness - Surgical History Surgery Procedure, Year, and Place: GALLBLADDER, HERNIA REPAIR ANTERIOR ABD, LEFT SIDED NECK LYMPH NODE Infectious Disease History: No Infectious Disease History: Denies: History Other Infectious Disease, Traveled Outside the [place] in Last 30 Days - Family History Known Family History: Positive: Diabetes - Social History Occupation: Employed Full-time Lives: With Family Alcohol Use: Weekly Hx Substance Use: No Substance Use Type: Reports: None Hx Tobacco Use: Yes Smoking Status (MU): Current Every Day Smoker Type: Cigarettes Have You Smoked in the Last Year: Yes Review of Systems Negative: Fever, Chills, Fatigue, Skin Diaphoresis Negative: Photophobia, Blurred Vision, Diplopia, Drainage, Erythema Negative: Epistaxis, Dental Pain, Sore Throat, Ear Ache, Nasal Discharge Negative: Palpitations, Chest Pain Negative: Shortness Of Breath, Cough Negative: Abdominal Pain, Vomiting, Diarrhea, Nausea Negative: burning, dysuria, discharge, frequency, flank pain, hematuria, incontinence, pain, urgency Negative: Arthralgia, Myalgia, Decreased ROM, Edema Negative: Rash, Bruising Negative: Headache, Weakness, Paresthesia, Numbness, Syncope, Slurred Speech Negative: Anxious, Depressed All Other Systems Reviewed And Are Negative: Yes Physical Exam - Summary Physical Exam Summary: VITAL SIGNS: Reviewed. GENERAL: Patient is a well-developed and nourished female who is lying comfortable in the stretcher. Patient is not in any acute respiratory distress. HEAD AND FACE: No signs of trauma. No ecchymosis, hematomas or skull depressions. No sinus tenderness. EYES: PERRLA, EOMI x 2, No injected conjunctiva, no nystagmus. EARS: Hearing grossly intact. Ear canals and tympanic membranes are within normal limits. MOUTH: Oropharynx within normal limits. NECK: Supple, trachea is midline, no adenopathy, no JVD, no carotid bruit, no c- spine tenderness, neck with full ROM. CHEST: Symmetric, no tenderness at palpation LUNGS: Clear to auscultation bilaterally. No wheezing or crackles. CVS: Regular rate and rhythm, S1 and S2 present, no murmurs or gallops appreciated. ABDOMEN: Soft, non-tender. No signs of distention. No rebound no guarding, and no masses palpated. Bowel sounds are normal. EXTREMITIES: FROM in all major joints, no edema, no cyanosis or clubbing. NEURO: Alert and oriented x 3. No acute neurological deficits. Speech is normal and follows commands. SKIN: Dry and warm Triage Information Reviewed: Yes Vital Signs On Initial Exam: Initial Vitals Temp Pulse Resp BP Pulse Ox 98 F 61 16 120/62 98 12/17/17 04:04 12/17/17 04:04 12/17/17 04:04 12/17/17 04:04 12/17/17 04:04 Vital Signs Reviewed: Yes Diagnostics - Vital Signs Vital Signs Temp Pulse Resp BP Pulse Ox 12/17/17 04:04 98 F 61 16 120/62 98 - Laboratory Lab Statement: Any lab studies that have been ordered have been reviewed, and results considered in the medical decision making process. Complex Multi-Symp Course/Dx Course Of Treatment: Patient comes into ED s/p receiving x2 positive tests and would like to confirm. Provider has ordered the appropriate bloodwork to check for . Patient will be D/C home - Diagnoses Provider Diagnoses: Discharge - Sign-Out/Discharge Documenting (check all that apply): Patient Departure - Discharge Plan Condition: Stable Disposition: HOME Patient Education Materials: (ED) Referrals: Fely Sandoval DO [Primary Care Provider] - 2 Days Additional Instructions: RETURN TO THE EMERGENCY DEPARTMENT FOR CHANGING OR WORSENING SYMPTOMS. FOLLOW UP WITH PCP IN 1-2 DAYS. - Attestation Statements Document Initiated by Scribe: Yes Documenting Scribe: Willie Joshua Provider For Whom Scribe is Documenting (Include Credential): Quita Valverde MD Scribe Attestation: Willie Craft, scribed for Quita Valverde MD on 12/17/17 at 0545.
[2017-12-17 05:55] VITALS: BP 139/40
== END 2017-12-17 05:53 | disposition home or self-care (01) ==
LOC: ED 04:02
DX: Z32.01 Encounter for pregnancy test, result positive (principal); Z88.1 Allergy status to other antibiotic agents; Z88.0 Allergy status to penicillin; Z88.2 Allergy status to sulfonamides; F17.210 Nicotine dependence, cigarettes, uncomplicated
CPT/HCPCS: 36415; 84702; 86703; 99282

== ENCOUNTER 2017-12-23 10:36 | Emergency (ER) | payer SELFPAY ==
[2017-12-23 10:45] VITALS: BP 109/59
--- NOTE | 2017-12-23 11:17 | UC ---
Complaint Female HPI - HPI Summary HPI Summary: SEEN AT [facility] TODAY () AND TOLD TO COME HERE FOR EVAL DUE TO BACTERIA IN URINE DIP. PT STATES HER URINE HAS BEEN MALODOROUS FOR SOME WEEKS. DENIES ANY PAIN OR URINARY FREQUENCY. NO FEVER OR NAUSEA. - History Of Current Complaint Chief Complaint: UCGU Stated Complaint: URINARY COMPLAINT Time Seen by Provider: 12/23/17 10:49 Hx Obtained From: Patient Hx Last Menstrual Period: 11/19/17 Onset/Duration: Gradual Onset, Lasting Days, Still Present Severity Initially: Moderate Severity Currently: Moderate Pain Intensity: 6 Pain Scale Used: 0-10 Numeric Aggravating Factor(s): Nothing Alleviating Factor(s): Nothing Associated Signs And Symptoms: Positive: Back Pain. Negative: Fever, Nausea - Allergies/Home Medications Allergies/Adverse Reactions: Allergies Allergy/AdvReac Type Severity Reaction Status Date / Time azithromycin Allergy Anaphylatic Verified 07/20/17 18:18 Shock Penicillins Allergy Unknown Verified 07/20/17 18:18 Reaction Details Sulfa (Sulfonamide Allergy Hives Verified 07/20/17 18:18 Antibiotics) Home Medications: Home Medications Vit 10/Iron/Folic/Dha [Vitafol-Ob+Dha Combo Pack] 1 tab PO DAILY [History Confirmed 12/23/17] PMH/Surg Hx/FS Hx/Imm Hx Endocrine History: Thyroid Disease - Surgical History Surgical History: Yes Surgery Procedure, Year, and Place: GALLBLADDER, HERNIA REPAIR ANTERIOR ABD, LEFT SIDED NECK LYMPH NODE bariatric surg 03/13 17 - Family History Known Family History: Positive: Diabetes - Social History Alcohol Use: None Substance Use Type: None Smoking Status (MU): Heavy Every Day Tobacco Smoker Type: Cigarettes Have You Smoked in the Last Year: Yes Review of Systems Constitutional: Negative Respiratory: Negative Cardiovascular: Negative Gastrointestinal: Negative Genitourinary: Other - MALODOROUS URINE Musculoskeletal: Other: - LOW BACK PAIN All Other Systems Reviewed And Are Negative: Yes Physical Exam Triage Information Reviewed: Yes Appearance: Well-Appearing, No Pain Distress, Well-Nourished Vital Signs: Initial Vital Signs Temp 97.9 F 12/23/17 10:39 Pulse 69 12/23/17 10:39 Resp 16 12/23/17 10:39 BP 109/59 12/23/17 10:39 Pulse Ox 99 12/23/17 10:39 Laboratory Tests 12/23/17 10:56 POC Urine Color Azul POC Urine Clarity Clear POC Urine pH 6.5 POC Ur Specif [place] 1.025 POC Urine Protein Trace A POC Ur Glucose (UA) Negative POC Urine Ketones 1+ A POC Urine Blood Negative POC Urine Nitrite Negative POC Urine Bilirubin 1+ A POC Urine Urobilinogen 4.0 A POC U Leukocyte Esteras 1+ A Vital Signs Reviewed: Yes Eyes: Positive: Conjunctiva Clear ENT: Positive: Hearing grossly normal Neck: Positive: Supple Respiratory: Positive: No respiratory distress, No accessory muscle use Cardiovascular: Positive: Pulses Normal Abdomen Description: Positive: Soft. Negative: CVA Tenderness (R), CVA Tenderness (L), Distended, Guarding Musculoskeletal: Positive: No Edema Neurological: Positive: Alert Psychological: Positive: Age Appropriate Behavior Skin: Negative: rashes Complaint Female Dx - Course Course Of Treatment: PT STATES SHE CAN NOT TAKE CAPSULES DUE TO H/O GASTIC BYPASS. WILL GIVE LIQUID CEPHALEXIN. F/U OB. - Differential Dx/Diagnosis Provider Diagnoses: UTI IN Discharge - Sign-Out/Discharge Documenting (check all that apply): Patient Departure All imaging exams completed and their final reports reviewed: No Studies - Discharge Plan Condition: Stable Disposition: HOME Prescriptions: Cephalexin SUSP* [Keflex SUSP 250 MG/5 ML*] 10 ml PO BID #100 ml Patient Education Materials: Urinary Tract Infection in (ED) Referrals: [facility] [Provider Group] - 1 Week Fely Sandoval DO [Primary Care Provider] - If Needed Additional Instructions: STAY WELL HYDRATED. FOLLOW-UP WITH [facility] WITHIN 1-2 WEEKS. - Billing Disposition and Condition Condition: STABLE Disposition: Home
== END 2017-12-23 11:26 | disposition home or self-care (01) ==
LOC: UCEAST 10:36
DX: O23.40 Unspecified infection of urinary tract in pregnancy, unspecified trimester (principal); Z3A.00 Weeks of gestation of pregnancy not specified; F17.210 Nicotine dependence, cigarettes, uncomplicated; Z88.0 Allergy status to penicillin; Z88.3 Allergy status to other anti-infective agents; Z88.2 Allergy status to sulfonamides
CPT/HCPCS: 81003; 87077; 87086; 87186; 99212; G0463

== ENCOUNTER 2017-12-23 17:21 | Emergency (ER) | payer SELFPAY ==
[2017-12-23 20:14] LABS: Hematocrit 37 % (35-47); Hemoglobin 12.5 g/dl (12.0-16.0); Mean Corpuscular HGB Conc 34 g/dl (31-36); Mean Corpuscular Hemoglobin 38 pg (27-31); Mean Corpuscular Volume 112 fL (80-97); Mean Platelet Volume 10.4 um3 (7.4-10.4); Platelet Count 211 10^3/ul (150-450); Red Cell Distribution Width 17 % (10.5-15); White Blood Count 9.5 10^3/ul (3.5-10.8)
[2017-12-23 20:42] LABS: ABS Basophils 0 10^3/ul (0-0.2); ABS Eosinophils 0.1 10^3/ul (0-0.6); ABS Lymphocytes 3.2 10^3/ul (1.0-4.8); ABS Monocytes 0.5 10^3/ul (0-0.8); ABS Neutrophils 5.6 10^3/ul (1.5-7.7); ABS Nucleated RBC 0 10^3/ul; Eosinophil % 1.5 % (0-6); Nucleated Red Blood Cells % 0.1
--- NOTE | 2017-12-23 21:58 | RAD ---
EXAM: US , Transvaginal CLINICAL HISTORY: 27 years old, female; Signs and symptoms; Lmp or gestational age (in weeks): 11/19/17; Other: Bleeding; ; Patient HX: Very early with bleeding TECHNIQUE: Real-time transvaginal obstetrical ultrasound of the maternal pelvis and a first trimester with image documentation. Transvaginal imaging was used for better evaluation of the fetus and adnexa. COMPARISON: A/P W CT ABD/PEL W 07/20/2017 9:08 PM FINDINGS: Gestation: A small irregularly-shaped fluid collection is present in the endometrial canal. It is not certain whether this represents a gestational sac or a focus of hemorrhage. No pole or yolk sac identified. Placenta/amniotic fluid: Cannot be adequately evaluated due to the early gestational age. Uterus/cervix: 4 mm nabothian cyst in the cervix. No myometrial mass. Ovaries: The left ovary measures 3.7 x 1.8 x 2.1 cm and contains a 1.2 x 1.9 x 1.0 cm cyst. The right ovary measures 2.6 x 1.5 x 1.8 cm. No mass. Free fluid: No free fluid. IMPRESSION: Small irregularly-shaped fluid collection in endometrial canal could represent a an irregularly-shaped gestational sac or a focus of hemorrhage. No pole or yolk sac identified. While this may represent very early IUP, demise or failed cannot be excluded. Recommend correlation with serial beta hCGs and followup ultrasound as indicated
--- NOTE | 2017-12-23 22:11 | ED ---
- HPI Summary HPI Summary: Patient with history of 5-6 weeks complains of mild vaginal spotting and mild low bilateral abdominal cramping 2 hours. Cramping is intermittent, worse at 6/10. Patient denies fever, cough, sore throat, CP, SOB, N/V/D, vaginal discharge or pain, change in BM. Medical history is none. Abdominal/ surgical history is Cria-en-Y on March 14, hernia repair. - History of Current Complaint Chief Complaint: EDOBProblems Stated Complaint: 4-6 WKS PREG/BLEEDING Time Seen by Provider: 12/23/17 21:08 Hx Obtained From: Patient Chief Complaint: Vaginal Bleeding Onset/Duration: Started Hours Ago Timing: Intermittent, Lasting Minutes Severity: Moderate Current Severity: Moderate Pain Intensity: 6 Location of Pain: Left Side, Right Side, Suprapubic Character: Cramping Associated Signs and Symptoms: Positive: Vaginal Bleeding or Discharge - Assessment Hx Now: Yes Hx Hysterectomy: No - Allergies/Home Medications Allergies/Adverse Reactions: Allergies Allergy/AdvReac Type Severity Reaction Status Date / Time azithromycin Allergy Anaphylatic Verified 12/23/17 17:26 Shock Sulfa (Sulfonamide Allergy Hives Verified 12/23/17 17:26 Antibiotics) PMH/Surg Hx/FS Hx/Imm Hx Endocrine/Hematology History: Reports: Hx Thyroid Disease Denies: Hx Anticoagulant Therapy, Hx Diabetes Cardiovascular History: Denies: Hx Hypertension Respiratory History: Denies: Hx Asthma GI History: Reports: Hx Gall Bladder Disease, Hx Hiatal Hernia History: Denies: Hx Dialysis, Hx Renal Disease Sensory History: Denies: Hx Deafness Neurological History: Denies: Hx CVA - Surgical History Surgery Procedure, Year, and Place: GALLBLADDER, HERNIA REPAIR ANTERIOR ABD, LEFT SIDED NECK LYMPH NODE bariatric surg 03/13 17 - Immunization History Immunizations Up to Date: Yes Infectious Disease History: No Infectious Disease History: Denies: History Other Infectious Disease, Traveled Outside the [place] in Last 30 Days - Family History Known Family History: Positive: Diabetes - Social History Alcohol Use: None Hx Substance Use: No Substance Use Type: Reports: None Hx Tobacco Use: Yes Smoking Status (MU): Heavy Every Day Tobacco Smoker Type: Cigarettes Have You Smoked in the Last Year: Yes Review of Systems Constitutional: Negative Eyes: Negative ENT: Negative Cardiovascular: Negative Respiratory: Negative Positive: Abdominal Pain Genitourinary: Negative Musculoskeletal: Negative Skin: Negative Neurological: Negative Psychological: Normal All Other Systems Reviewed And Are Negative: Yes Physical Exam - Summary Physical Exam Summary: Mild tenderness to palpation in lower abdomen bilaterally and suprapubically. Abdominal exam otherwise unremarkable. - Physical Exam Triage Information Reviewed: Yes Vital Signs Reviewed: Yes Appearance: Positive: Well-Appearing Skin: Positive: Warm Head/Face: Positive: Normal Head/Face Inspection Eyes: Positive: Normal Neck: Positive: Supple Respiratory/Lung Sounds: Positive: Clear to Auscultation Cardiovascular: Positive: Normal Abdomen Description: Positive: Other: Musculoskeletal: Positive: Normal Neurological: Positive: Normal Psychiatric: Positive: Normal AVPU Assessment: Alert - [place] Coma Scale Eye: 4 - Spontaneous Motor: 6 - Obeys Commands Verbal: 5 - Oriented Coma Scale Total: 15 Diagnostics - Vital Signs Vital Signs Temp Pulse Resp BP Pulse Ox 12/23/17 19:58 98.0 F 51 16 127/98 100 12/23/17 17:24 97.9 F 65 12 122/54 98 - Laboratory Lab Results: Lab Results 12/23/17 12/23/17 12/23/17 Range/Units 19:23 19:23 19:23 WBC 9.5 (3.5-10.8) 10^3/ul RBC 3.30 L (4.00-5.40) 10^6/ul Hgb 12.5 (12.0-16.0) g/dl Hct 37 (35-47) % MCV 112 H (80-97) fL MCH 38 H (27-31) pg MCHC 34 (31-36) g/dl RDW 17 H (10.5-15) % Plt Count 211 (150-450) 10^3/ul MPV 10.4 (7.4-10.4) um3 Neut % (Auto) 58.8 (38-83) % Lymph % (Auto) 34.0 (25-47) % [place] % (Auto) 5.6 (0-7) % Eos % (Auto) 1.5 (0-6) % Baso % (Auto) 0.1 (0-2) % Absolute Neuts (auto) 5.6 (1.5-7.7) 10^3/ul Absolute Lymphs (auto) 3.2 (1.0-4.8) 10^3/ul Absolute Monos (auto) 0.5 (0-0.8) 10^3/ul Absolute Eos (auto) 0.1 (0-0.6) 10^3/ul Absolute Basos (auto) 0 (0-0.2) 10^3/ul Absolute Nucleated RBC 0 10^3/ul Nucleated RBC % 0.1 Beta HCG, Quant 1239.02 mIU/mL Blood Type O Negative Result Diagrams: 12/23/17 19:23 Lab Statement: Any lab studies that have been ordered have been reviewed, and results considered in the medical decision making process. Course/Dx - Course Course Of Treatment: Patient with history of 5-6 weeks complains of mild vaginal spotting and mild low bilateral abdominal cramping 2 hours. Cramping is intermittent, worse at 6/10. Patient denies fever, cough, sore throat, CP, SOB, N/V/D, vaginal discharge or pain, change in BM. Medical history is none. Abdominal/surgical history is Cira-en-Y on March 14, hernia repair. Physical exam:Mild tenderness to palpation in lower abdomen bilaterally and suprapubically. Abdominal exam otherwise unremarkable. Pelvic exam deferred. Vital signs normal. Labs unremarkable. Ultrasound transvaginal nonconclusive. Recommend repeat hCG in 48 hours and repeat ultrasound. Follow up with [facility] or return to the ED. - Diagnoses Provider Diagnoses: Discharge - Sign-Out/Discharge Documenting (check all that apply): Patient Departure - Discharge Plan Condition: Stable Disposition: HOME Patient Education Materials: (ED) Referrals: Fely Sandoval DO [Primary Care Provider] - Additional Instructions: Follow up with [facility]HE[facility] Dr. Trejo. Get repeat hCG levels in 48 hours, and repeat ultrasound. Return to the ED for any new or worsening symptoms - Billing Disposition and Condition Condition: STABLE Disposition: Home
[2017-12-23] MEDS ORDERED: Acetaminophen TAB* 325 MG PO ONE (22:17)
[2017-12-23] MEDS ORDERED: RHO D Immune Globulin (HUMAN)* 300 MCG = 1,500 I.U. INJ IM ONE (22:30)
[2017-12-23 22:58] VITALS: BP 113/56
== END 2017-12-23 22:57 | disposition home or self-care (01) ==
LOC: ED 17:21
DX: O46.91 Antepartum hemorrhage, unspecified, first trimester (principal); R10.9 Unspecified abdominal pain; Z3A.01 Less than 8 weeks gestation of pregnancy
CPT/HCPCS: 36415; 76817; 84702; 85025; 86850; 86870; 86880; 86900; 86901; 99282; A9270-GY; J2790

== ENCOUNTER 2017-12-26 10:01 | Emergency (ER) | payer MEDICAID ==
[2017-12-26 10:56] VITALS: BP 121/62
--- NOTE | 2017-12-26 10:56 | ED ---
GI/ HPI - HPI Summary HPI Summary: Patient is a 27 y/o F w/ c/o vaginal bleeding while about 5-7 weeks . She reports that LNMP was 11/19/17. Bleeding onset three days ago around 1500. Patient denies chest pain, abdominal pain, SOB, cramping, nausea. Patient reports having an US three days ago and was told it was inconclusive. Patient saw providers yesterday and received blood work. hormone has cut in half. Patient is O- blood type, has had 5 miscarriages in the past. She states she was not given rho peter shot for first three pregnancies. However, patient has received rho peter three days ago. Bleeding is currently light per patient. She reports that providers told her to follow up at [place] if she had a miscarriage. On triage, pain is denied, nothing is reported to alleviate/ aggravate Sx. Home medications and allergies are reviewed. Patient has been taking vitamins. - History of Current Complaint Chief Complaint: EDOBProblems Time Seen by Provider: 12/26/17 10:18 Stated Complaint: VAGINAL BLEEDING/ Hx Obtained From: Patient Hx Last Menstrual Period: 11/19/17 Onset/Duration: Started Days Ago - onset 3 days ago at 1599 Timing: Constant Current Severity: None Pain Intensity: 0 Associated Signs and Symptoms: Positive: Other: - NEGATIVE: SOB. Negative: Nausea, Abdominal Pain, Chest Pain Additional Signs & Symptoms: Positive: Vaginal Bleeding, Other: - NEGATIVE: cramping Aggravating Factor(s): Nothing Alleviating Factor(s): Nothing - Allergy/Home Medications Allergies/Adverse Reactions: Allergies Allergy/AdvReac Type Severity Reaction Status Date / Time azithromycin Allergy Anaphylatic Verified 12/26/17 10:09 Shock Sulfa (Sulfonamide Allergy Hives Verified 12/26/17 10:09 Antibiotics) PMH/Surg Hx/FS Hx/Imm Hx Endocrine/Hematology History: Reports: Hx Thyroid Disease Denies: Hx Anticoagulant Therapy, Hx Diabetes Cardiovascular History: Denies: Hx Hypertension Respiratory History: Denies: Hx Asthma GI History: Reports: Hx Gall Bladder Disease, Hx Hiatal Hernia History: Denies: Hx Dialysis, Hx Renal Disease Sensory History: Denies: Hx Deafness Neurological History: Denies: Hx CVA - Surgical History Surgery Procedure, Year, and Place: GALLBLADDER, HERNIA REPAIR ANTERIOR ABD, LEFT SIDED NECK LYMPH NODE bariatric surg 03/13 17 Infectious Disease History: No Infectious Disease History: Denies: History Other Infectious Disease, Traveled Outside the [place] in Last 30 Days - Family History Known Family History: Positive: Diabetes - Social History Alcohol Use: None Hx Substance Use: No Substance Use Type: Reports: None Hx Tobacco Use: Yes Smoking Status (MU): Heavy Every Day Tobacco Smoker Type: Cigarettes Have You Smoked in the Last Year: Yes Review of Systems Negative: Chest Pain Negative: Shortness Of Breath Negative: Abdominal Pain, Nausea Positive: other - POSITIVE: vaginal bleeding while NEGATIVE: cramping All Other Systems Reviewed And Are Negative: Yes Physical Exam - Summary Physical Exam Summary: Appearance: Patient is tearful, no pain distress Skin: warm, dry, reflects adequate perfusion Head/face: normal Eyes: EOMI, JAYA ENT: normal Neck: supple, non-tender Respiratory: CTA, breath sounds present Cardiovascular: RRR, pulses symmetrical Abdomen: non-tender, soft Bowel Sounds: present Musculoskeletal: normal, strength/ROM intact Neuro: normal, sensory motor intact, A&Ox3 Triage Information Reviewed: Yes Vital Signs On Initial Exam: Initial Vitals Temp Pulse Resp BP Pulse Ox 98.0 F 60 16 116/57 100 12/26/17 10:02 12/26/17 10:02 12/26/17 10:02 12/26/17 10:02 12/26/17 10:02 Vital Signs Reviewed: Yes Diagnostics - Vital Signs Vital Signs Temp Pulse Resp BP Pulse Ox 12/26/17 10:02 98.0 F 60 16 116/57 100 - Laboratory Lab Statement: Any lab studies that have been ordered have been reviewed, and results considered in the medical decision making process. Re-Evaluation - Re-Evaluation First Eval Re-Evaluation Time: 10:48 Change: Unchanged Comment: Discussed plan to discharge patient and for patient to follow up with [facility] and [facility]; she is agreeable with this plan. GIGU Course/Dx - Course Course Of Treatment: with 4 spontaneous miscarriages who had ultrasound consistent with pending spontaneous miscarriage several days ago and has had falling quantitative hCGs since then. Rh- but received RhoGAM 3 days ago. Patient states her first 3 miscarriages were not treated with RhoGAM as she did not present for medical care. She has follow-up on Thursday with [facility] in [facility] who is doing blood work to see if there is ABO incompatibility/Rh sensitization. No active bleeding at this point. We'll need [facility] [employer] OFFICER to follow quantitative hCG to zero. - Diagnoses Differential Diagnoses - Female: Other - Spontaneous miscarriage, ectopic Provider Diagnoses: Spontaneous Discharge - Sign-Out/Discharge Documenting (check all that apply): Patient Departure - discharge - Discharge Plan Condition: Stable Disposition: ADMITTED TO [facility] Patient Education Materials: Miscarriage (ED) Referrals: Fely Sandoval, [Primary Care Provider] - Additional Instructions: Follow up in [place] on Thursday for further testing related to her multiple miscarriages. Follow up with your OBGYN early in the week as well. You will need to have your bloodwork followed. Return with heavy bleeding, abdominal cramping, lightheadedness/weakness, worse or other concerns as discussed. - Billing Disposition and Condition Condition: STABLE Disposition: Admitted to [facility] - Attestation Statements Document Initiated by Scribe: Yes Documenting Scribe: Joseph Simons Provider For Whom Lea is Documenting (Include Credential): Anil Higginbotham MD Scribe Attestation: Joseph Craft, scribed for Anil Higginbotham MD on 12/26/17 at 1302. Scribe Documentation Reviewed: Yes Provider Attestation: The documentation as recorded by the Joseph arteaga accurately reflects the service I personally performed and the decisions made by me, Anil Higginbotham MD
[2017-12-26] MEDS ORDERED: RHO D Immune Globulin (HUMAN)* 300 MCG = 1,500 I.U. INJ IM SCH (11:00)
== END 2017-12-26 10:48 | disposition short-term general hospital (02) ==
LOC: ED 10:01
DX: O03.9 Complete or unspecified spontaneous abortion without complication (principal); F17.210 Nicotine dependence, cigarettes, uncomplicated; Z88.3 Allergy status to other anti-infective agents; Z88.0 Allergy status to penicillin
CPT/HCPCS: 96372; 99282

== ENCOUNTER 2018-01-28 23:01 | Emergency (ER) | payer MEDICAID ==
[2018-01-29] MEDS ORDERED: Cephalexin CAP* 500 MG PO ONE (01:31)
--- NOTE | 2018-01-29 01:32 | ED ---
Skin Complaint - HPI Summary HPI Summary: Patient concerned for infection at site of facial piercing. Patient piercing placed 2 months ago. States very painful 2 days. Denies fever, cough, sore throat, CP, SOB, N/V/D, baclofen, change in urine, change in BM. Medical history is none. - History of Current Complaint Chief Complaint: EDGeneral Time Seen by Provider: 01/29/18 00:13 Stated Complaint: LT SIDE FACIAL PAIN Hx Obtained From: Patient Hx Last Menstrual Period: 11/19/17 Onset/Duration: Started Days Ago Timing: Constant Onset Severity: Moderate Current Severity: Moderate Pain Intensity: 8 Pain Scale Used: 0-10 Numeric Skin Location: Discrete Aggravating Symptom(s): Nothing Alleviating Symptom(s): Nothing Associated Signs & Symptoms: Negative - Allergy/Home Medications Allergies/Adverse Reactions: Allergies Allergy/AdvReac Type Severity Reaction Status Date / Time azithromycin Allergy Anaphylatic Verified 01/28/18 23:07 Shock Sulfa (Sulfonamide Allergy Hives Verified 01/28/18 23:07 Antibiotics) PMH/Surg Hx/FS Hx/Imm Hx Endocrine/Hematology History: Reports: Hx Thyroid Disease Denies: Hx Anticoagulant Therapy, Hx Diabetes Cardiovascular History: Denies: Hx Hypertension Respiratory History: Denies: Hx Asthma GI History: Reports: Hx Gall Bladder Disease, Hx Hiatal Hernia History: Denies: Hx Dialysis, Hx Renal Disease Sensory History: Denies: Hx Deafness Neurological History: Denies: Hx CVA - Surgical History Surgery Procedure, Year, and Place: GALLBLADDER, HERNIA REPAIR ANTERIOR ABD, LEFT SIDED NECK LYMPH NODE bariatric surg 03/13 17 Infectious Disease History: No Infectious Disease History: Denies: History Other Infectious Disease, Traveled Outside the [place] in Last 30 Days - Family History Known Family History: Positive: Diabetes - Social History Alcohol Use: None Hx Substance Use: No Substance Use Type: Reports: None Hx Tobacco Use: Yes Smoking Status (MU): Heavy Every Day Tobacco Smoker Type: Cigarettes Have You Smoked in the Last Year: Yes Review of Systems Constitutional: Negative Eyes: Negative ENT: Negative Cardiovascular: Negative Respiratory: Negative Gastrointestinal: Negative Genitourinary: Negative Musculoskeletal: Negative Skin: Other Neurological: Negative Psychological: Normal All Other Systems Reviewed And Are Negative: Yes Physical Exam - Summary Physical Exam Summary: Localized erythema around site of a small facial piercing lateral to left eye. No evidence of abscess or purulent drainage. Triage Information Reviewed: Yes Vital Signs On Initial Exam: Initial Vitals Temp Pulse Resp BP Pulse Ox 97.5 F 60 16 125/55 98 01/28/18 23:04 01/28/18 23:04 01/28/18 23:04 01/28/18 23:04 01/28/18 23:04 Vital Signs Reviewed: Yes Appearance: Positive: Well-Appearing Skin: Positive: Warm Head/Face: Positive: Normal Head/Face Inspection Eyes: Positive: Normal Neck: Positive: Supple Respiratory/Lung Sounds: Positive: Clear to Auscultation Cardiovascular: Positive: Normal Abdomen Description: Positive: Nontender Musculoskeletal: Positive: Normal Neurological: Positive: Normal Psychiatric: Positive: Normal AVPU Assessment: Alert - [place] Coma Scale Best Eye Response: 4 - Spontaneous Best Motor Response: 6 - Obeys Commands Best Verbal Response: 5 - Oriented Coma Scale Total: 15 Diagnostics - Vital Signs Vital Signs Temp Pulse Resp BP Pulse Ox 01/28/18 23:04 97.5 F 60 16 125/55 98 - Laboratory Lab Statement: Any lab studies that have been ordered have been reviewed, and results considered in the medical decision making process. Course/Dx - Course Course Of Treatment: Patient concerned for infection at site of facial piercing. Patient piercing placed 2 months ago. States very painful 2 days. Denies fever, cough, sore throat, CP, SOB, N/V/D, baclofen, change in urine, change in BM. Medical history is none. Physical exam: Localized erythema around site of a small facial piercing lateral to left eye. No evidence of abscess or purulent drainage. Patient asked for facial piercing to be removed. Advised by me removal might leave possible scar. Patient insisted on removing piercing. Piercing removed. Cellulitis. Rx for Keflex. Patient started here on Keflex 500 mg by mouth - Diagnoses Provider Diagnoses: Cellulitis, Foreign body entering through skin Discharge - Sign-Out/Discharge Documenting (check all that apply): Patient Departure - Discharge Plan Condition: Stable Disposition: HOME Prescriptions: Cephalexin CAP* [Keflex CAP*] 500 mg PO TID 7 Days #21 cap Patient Education Materials: Cellulitis (ED) Referrals: Fely Sandoval DO [Primary Care Provider] - Additional Instructions: Take antibiotics as directed. Return to the ED for any new or worsening symptoms - Billing Disposition and Condition Condition: STABLE Disposition: Home
[2018-01-29 02:07] VITALS: BP 142/84
== END 2018-01-29 02:07 | disposition home or self-care (01) ==
LOC: ED 23:01
DX: L03.211 Cellulitis of face (principal); F17.210 Nicotine dependence, cigarettes, uncomplicated
CPT/HCPCS: 99282; 99283; A9270-GY

== ENCOUNTER 2018-02-02 13:38 | Emergency (ER) | payer MEDICAID ==
--- OUTSIDE RECORDS SUMMARY | 2018-02-02 13:59 | XMS REPORT ---
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 Payers Type Date Identification Numbers Payment Provider Subscriber Medicaid Policy Number: [id number] Medicaid [employer] Name: 1 1 [address] PayID: [id number] [place] [address] Problems Date Description Provider Status Onset: 01/21/2018 Obesity Nik Ruiz MD Active Onset: 01/21/2018 Tobacco user Nik Ruiz MD Active Onset: 01/21/2018 Diaphragmatic hernia Nik Ruiz MD Active Onset: 01/21/2018 Recurrent loss Nik Ruiz MD Active Onset: 01/21/2018 Hypothyroidism Nik Ruiz MD Active Social History Type Date Description Comments Smoking Heavy tobacco smoker (more than 10 cigarettes/day) Allergies, Adverse Reactions, Alerts Date Description Reaction Status Severity Comments 01/21/2018 Sulfa Antibiotics active 01/21/2018 Zithromax active Medications Medication Date Status Form Strength Qnty SIG Indications Ordering Provider Chantix 01/22/20 Active Tablets 1mg 60tabs Days 1 F17.210 Nik Ruiz, 18 to 3: 0.5 mg once daily Days 4 to 7: 0.5 mg twice daily. Day 8 on 1 mg twice a day No Active 01/22/20 Hx Unknown Medications 18 - 01/22/20 18 Vital Signs Date Vital Result Comment 01/21/2018 Height 64 inches 5'4" Weight 184.00 lb Heart Rate 68 /min BP Systolic 110 mmHg Lue BP Diastolic 80 mmHg Lue BP Systolic Sitting 108 mmHg Rue BP Diastolic Sitting 78 mmHg Rue BP Systolic Standing 112 mmHg BP Diastolic Standing 78 mmHg Respiratory Rate 16 /min Body Temperature 99.0 F Pain Level 6 abd. O2 % BldC Oximetry 98 % BMI (Body Mass Index) 31.6 kg/m2 Results Description No Information Procedures Description No Information Plan of Care Future Appointment(s):02/01/2018 2:30 pm - Nik Ruiz MD at [facility]01/21/2018 - Nik Ruiz [id number] Recurrent lossComments:Has been recently been diagnosed with Antiphospholipid syndrome.E03.9 Hypothyroidism , ryxyrqvzxdoN24.9 Diaphragmatic hernia without obstruction or gangreneComments: Follow-up with you surgeon Dr. Butcher.F17.210 Nicotine dependence, cigarettes , uncomplicatedNew Medication:Chantix 1 mgE66.9 Obesity, unspecified
--- OUTSIDE RECORDS SUMMARY | 2018-02-02 13:59 | XMS REPORT ---
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 Butcher.F17.210 Nicotine dependence, cigarettes , uncomplicatedNew Medication:Chantix 1 mgE66.9 Obesity, unspecified
[2018-02-02 14:14] VITALS: BP 103/38
--- NOTE | 2018-02-02 16:01 | UC ---
Complaint Female HPI - HPI Summary HPI Summary: 27-year-old female presents with 3-4 day history of lower abdominal pain, dyspareunia, and vaginal discharge. She states that she was treated for Trichomonas 2 or 3 weeks ago and is having similar symptoms at this time. She is also stating that she had unprotected sex with a new partner recently ago she thinks may be hep C positive. Denies fever, chills, nausea, vomiting, back or flank pain, dysuria, frequency, urgency, hematuria, or genital lesions. - History Of Current Complaint Chief Complaint: UCSTDScreening Stated Complaint: PERSONAL Time Seen by Provider: 02/02/18 15:23 Hx Obtained From: Patient Hx Last Menstrual Period: 01/22/18 ?: No Onset/Duration: Gradual Onset, Lasting Days Severity Currently: Mild Pain Intensity: 4 Character: Cramping Aggravating Factor(s): [place] Alleviating Factor(s): Nothing Associated Signs And Symptoms: Positive: Vaginal Discharge. Negative: Fever, Back Pain, Nausea, Vomiting(# Of Episodes =), Genital Swelling, Genital Blisters - Allergies/Home Medications Allergies/Adverse Reactions: Allergies Allergy/AdvReac Type Severity Reaction Status Date / Time azithromycin Allergy Anaphylatic Verified 02/02/18 14:14 Shock ciprofloxacin [From Cipro] Allergy GI Upset Verified 02/02/18 14:15 Sulfa (Sulfonamide Allergy Hives Verified 02/02/18 14:14 Antibiotics) PMH/Surg Hx/FS Hx/Imm Hx Previously Healthy: Yes - Denies significant PMH Other History Of: Negative For: Anticoagulant Therapy - Surgical History Surgical History: Yes Surgery Procedure, Year, and Place: GALLBLADDER, HERNIA REPAIR ANTERIOR ABD, LEFT SIDED NECK LYMPH NODE bariatric surg 03/13 17. wisdom tooth - Family History Known Family History: Positive: Diabetes - Social History Lives: With Family Alcohol Use: None Substance Use Type: None Smoking Status (MU): Heavy Every Day Tobacco Smoker Type: Cigarettes Amount Used/How Often: 2 cig/day Have You Smoked in the Last Year: Yes Review of Systems Constitutional: Negative Skin: Negative Respiratory: Negative Cardiovascular: Negative Gastrointestinal: Abdominal Pain Genitourinary: Vaginal/Penile Discharge, Other - dyspareunia Is Patient Immunocompromised?: No All Other Systems Reviewed And Are Negative: Yes Physical Exam Triage Information Reviewed: Yes Appearance: Well-Appearing, No Pain Distress, Well-Nourished Vital Signs: Initial Vital Signs Temp 98.5 F 02/02/18 14:05 Pulse 59 02/02/18 14:05 Resp 18 02/02/18 14:05 BP 103/38 02/02/18 14:05 Pulse Ox 100 02/02/18 14:05 Respiratory: Positive: Lungs clear, Normal breath sounds, No respiratory distress Cardiovascular: Positive: RRR, No Murmur Abdomen Description: Positive: Nontender, No Organomegaly, Soft. Negative: CVA Tenderness (R), CVA Tenderness (L), Distended, Guarding Pelvic Exam: Positive: No Cerv. Motion Tender, No Masses, Discharge - thin white , Other - Cultures obtained. Negative: Active Bleeding, Lesions, Mass, Tender Adnexa, Tender Uterus, Ulcers Neurological: Positive: Alert Skin Exam: Normal Complaint Female Dx - Course Course Of Treatment: 27-year-old female presents with 3-4 day history of lower abdominal pain, dyspareunia, and vaginal discharge. She was treated for trichomoniasis about 3 weeks ago and states symptoms are similar to that episode. She also has a concern for possible exposure to Hep C exposrure. Exam unremarkable except for some thin, white vaginal discharge. Cultures for gonorrhea, chlamydia, trichomona, and garnerella were obtained as well as testing for syphilis and hepatitis panel were performed. Will treat based on results. Patient was counseled on safe sex practices. Warning symptoms reviewed. Verbalizes understanding and agrees with POC. - Differential Dx/Diagnosis Differential Diagnosis/HQI/PQRI: Pelvic Inflammatory Disease, Sexually Transmitted Disease, Urinary Tract Infection Provider Diagnoses: dyspareunia Discharge - Sign-Out/Discharge Documenting (check all that apply): Patient Departure All imaging exams completed and their final reports reviewed: No Studies - Discharge Plan Condition: Stable Disposition: HOME Patient Education Materials: Safe Sex (ED), Dyspareunia in Women (DC) Referrals: Fely Sandoval DO [Primary Care Provider] - Additional Instructions: Your exam in the clinic today was unremarkable except for some thin white discharge. We we will send cultures to test for gonorrhea, chlamydia, Gardnerella, and Trichomonas. We will also drawn blood to test for syphilis and hepatitis as he requested. We will treat based on the results of these tests. Follow-up with your primary care provider if symptoms persist. Seek immediate medical attention in the emergency room if you have fever greater than 100.5 F, severe abdominal pain, persistent vomiting, abnormal vaginal bleeding, or any worsening of symptoms. - Billing Disposition and Condition Condition: STABLE Disposition: Home
--- NOTE | 2018-02-03 20:48 | UC ---
- Progress Note Progress Note: Cultures results show positive garnerella, negative for ian, trichomonas vaginalis, gonorrhea, and chlamydia. Syphilis screen and hepatitis panels were non-reactive. Patient should be notified of results. The positive gardnerella is consistent with bacterial vaginosis. Will send prescription for MetroGel Vaginal 1 applicator full intravaginally at bedtime x 5 days. Discharge - Sign-Out/Discharge Documenting (check all that apply): Post-Discharge Follow Up All imaging exams completed and their final reports reviewed: No Studies - Discharge Plan Condition: Stable Disposition: HOME Patient Education Materials: Safe Sex (ED), Dyspareunia in Women (DC) Referrals: Fely Sandoval DO [Primary Care Provider] - Additional Instructions: Your exam in the clinic today was unremarkable except for some thin white discharge. We we will send cultures to test for gonorrhea, chlamydia, Gardnerella, and Trichomonas. We will also drawn blood to test for syphilis and hepatitis as he requested. We will treat based on the results of these tests. Follow-up with your primary care provider if symptoms persist. Seek immediate medical attention in the emergency room if you have fever greater than 100.5 F, severe abdominal pain, persistent vomiting, abnormal vaginal bleeding, or any worsening of symptoms. - Billing Disposition and Condition Condition: STABLE Disposition: Home
== END 2018-02-02 16:20 | disposition home or self-care (01) ==
LOC: UCEAST 13:38
DX: N94.10 Unspecified dyspareunia (principal); F17.210 Nicotine dependence, cigarettes, uncomplicated; R10.30 Lower abdominal pain, unspecified; Z88.2 Allergy status to sulfonamides; Z88.1 Allergy status to other antibiotic agents
CPT/HCPCS: 36415; 80074; 81003; 84702; 86592; 87480; 87491; 87510; 87591; 87661; 99212; G0463